=== PATIENT | male | born 1980 | race Hispanic/Latino ===

== ENCOUNTER 2019-05-19 09:47 | Emergency (ER) | payer OTHER ==
[~2019-05-19] VITALS: Ht 177.8 cm; Wt 95.2 kg
[2019-05-19] MEDS ORDERED: ACULAR LS5 ML OPTH (11:54)
== END 2019-05-19 12:02 | disposition home or self-care (01) ==
LOC: ED 09:47
DX: S09.90XA Unspecified injury of head, initial encounter (principal); S05.92XA Unspecified injury of left eye and orbit, initial encounter; W22.8XXA Striking against or struck by other objects, initial encounter
CPT/HCPCS: 70450; 70480; 99283-25

== ENCOUNTER 2021-02-18 11:06 | Emergency (ER) | payer OTHER ==
[~2021-02-18] VITALS: Ht 180.3 cm; Wt 101.2 kg
[~2021-02-18 11:06] MED LIST: ACULAR LS5 ML OPTH
[2021-02-18] MEDS ORDERED: LISINOPRIL10 MG PO (14:12)
[2021-02-18] MEDS ORDERED: OPCON-A EYE DRO15 ML OPTH (14:13)
== END 2021-02-18 13:50 | disposition home or self-care (01) ==
LOC: ED 11:06
DX: H53.2 Diplopia (principal); H53.9 Unspecified visual disturbance
CPT/HCPCS: 70450; 99285-25